=== PATIENT | female | born 1980 | race Caucasian/White ===

== ENCOUNTER 2021-07-29 08:30 | Day surgery (SDC) | payer OTHER ==
[~2021-07-29] VITALS: Ht 152.4 cm; Wt 85.7 kg
[2021-07-29] MEDS ORDERED: diphenhydrAMINE 50 MG/ML VIAL ONE (09:48)
[2021-07-29] MEDS ORDERED: MIDAZOLAM 5 MG/5 ML VIAL ONE (09:49)
[2021-07-29] MEDS ORDERED: fentaNYL citrate 0.05 MG/ML VIAL ONE (09:49)
[2021-07-29] MEDS ORDERED: fentaNYL citrate 0.05 MG/ML VIAL IVP ONE (13:25)
[2021-07-29] MEDS ORDERED: MIDAZOLAM 2 MG/2 ML VIAL IVP ONE (13:25)
== END 2021-07-29 10:49 | disposition home or self-care (01) ==
LOC: MDS 08:30 → MFCC 08:31 → MDS 10:49
PROVIDERS: ATTEND Internal Medicine Gastroenterology
DX: R10.9 Unspecified abdominal pain (principal); R19.7 Diarrhea, unspecified; K52.839 Microscopic colitis, unspecified; I10 Essential (primary) hypertension; Z88.1 Allergy status to other antibiotic agents; Z90.711 Acquired absence of uterus with remaining cervical stump; Z79.899 Other long term (current) drug therapy
CPT/HCPCS: 43239; J2250; J3010; 88305; 88312; 88313; 88342; J1200

== ENCOUNTER 2021-08-03 19:02 | Emergency (ER) | payer OTHER ==
[~2021-08-03] VITALS: Ht 152.4 cm; Wt 85.7 kg
[2021-08-03 19:17] VITALS: BP 162/88
--- NOTE | 2021-08-03 19:37 | NUR ---
PT AMBULATED TO BED #4
--- NOTE | 2021-08-03 20:01 | NUR ---
PT BIB SELF FOR C/C N/V. PT REPORTS SHE HAS HAD CHRONIC N/V FOR 1.5 YEARS AND HAD AN ENDOSCOPY DONE ON SUNDAY 07/29. PT REPORTS THE N/V BECAME WORSE AFTERWARDS. CURRENTLY ON REGLAN AND ZOFRAN WITHOUT RELIEF. +ABDOMINAL PAIN D/T VOMITING. PT ALSO REPORTING NEW ONSET BLURRED VISION THIS PAST WEEK, REPORTS SEEING AN OPTHOMOLOGIST WITH NO CHANGES IN ACUITY NOTED. MED HX: HTN ALLERGIES: SEE LISTED
--- NOTE | 2021-08-03 20:57 | NUR ---
ERMD AT BEDSIDE.
[2021-08-03] MEDS ORDERED: diphenhydrAMINE 50 MG/ML VIAL IM ONE (21:05)
--- NOTE | 2021-08-03 21:14 | NUR ---
PT AMBULATED TO RESTROOM FOR URINE SAMPLE.
--- NOTE | 2021-08-03 21:14 | NUR ---
LAB AT BEDSIDE.
[2021-08-03 21:29] LABS: BASOPHILS # (AUTO) 0.1 K/uL (0.00-0.22); BASOPHILS % (AUTO) 0.4 % (0.0-2.0); EOSINOPHILS # (AUTO) 0.2 K/uL (0-0.4); EOSINOPHILS % (AUTO) 1.4 % (0.0-4.0); HEMATOCRIT 27.7 % (36-48); HEMOGLOBIN 8.5 g/dL (12.0-16.0); LYMPHOCYTES # (AUTO) 2.3 K/uL (2.5-16.5); LYMPHOCYTES % (AUTO) 19.2 % (20.5-51.1); MEAN CORPUSCULAR HEMOGLOBIN 22 pg (27-31); MEAN CORPUSCULAR HGB CONC 31 g/dL (33-37); MEAN CORPUSCULAR VOLUME 72.8 fL (80-94); MONOCYTES # (AUTO) 0.6 K/uL (0.8-1.0); MONOCYTES % (AUTO) 5.1 % (1.7-9.3); NEUTROPHILS # (AUTO) 8.8 K/uL (1.8-7.7); NEUTROPHILS % (AUTO) 73.9 % (42.2-75.2); PLATELET COUNT (AUTO) 490 K/uL (140-450); RED BLOOD CELL COUNT(AUTO) 3.81 MIL/uL (4.20-5.40); WHITE BLOOD COUNT (AUTO) 11.9 K/uL (4.8-10.8)
[2021-08-03 21:38] LABS: ANION GAP 12.9 (8-16); CARBON DIOXIDE 27.5 mmol/L (21-32); CREATININE 0.8 mg/dL (0.6-1.3); POTASSIUM 3.4 mmol/L (3.5-5.1)
[2021-08-03 21:40] LABS: BILIRUBIN,URINE 2+ (NEGATIVE); BLOOD, URINE 3+ (NEGATIVE); COLOR,URINE YELLOW (YELLOW); LEUKOCYTE ESTERASE ,URINE 1+ (NEGATIVE); NITRITE, URINE NEGATIVE (NEGATIVE); UGLUCOSE NEGATIVE (NEGATIVE)
[2021-08-03 21:41] LABS: APPEARANCE,URINE HAZY (CLEAR)
[2021-08-03 21:59] LABS: RBC,URINE 0-5 /HPF (0-5); WBC,URINE 0-5 /HPF (0-5)
[2021-08-03 22:18] VITALS: BP 136/76
--- NOTE | 2021-08-03 22:18 | NUR ---
Patient discharged with v/s stable. Written and verbal after care instructions given and explained. Patient verbalized understanding. Ambulatory with steady gait. All questions addressed prior to discharge. Advised to follow up with PMD.
== END 2021-08-03 22:18 | disposition home or self-care (01) ==
LOC: MED 19:02
DX: R11.2 Nausea with vomiting, unspecified (principal); R19.7 Diarrhea, unspecified; F12.10 Cannabis abuse, uncomplicated; Z88.2 Allergy status to sulfonamides; Z88.8 Allergy status to other drugs, medicaments and biological substances
CPT/HCPCS: 36415; 80048; 81001; 81025; 85025; 87086; 96372; 99283; J1200